=== PATIENT | male | born 1955 | race Caucasian/White ===

== ENCOUNTER 2025-04-13 12:38 | Emergency (ER) | payer MEDICARE ==
[2025-04-13] MEDS ORDERED: Bacitracin Oint 1 GM U/D Packet TOP ONE (12:53)
[2025-04-13 12:58] VITALS: BP 139/62; PULSE 56
== END 2025-04-13 13:00 | disposition home or self-care (01) ==
LOC: DL.ED 12:38
DX: T22.212A Burn of second degree of left forearm, initial encounter (principal); X03.8XXA Other exposure to controlled fire, not in building or structure, initial encounter; Y93.89 Activity, other specified
CPT/HCPCS: 99282; 99283